=== PATIENT | male | born 1980 | race Caucasian/White ===

== ENCOUNTER 2023-03-30 22:06 | Emergency (ER) | payer OTHER, SELFPAY ==
[2023-03-30 22:07] VITALS: BP 157/90; PULSE 77; RESP 18; TEMP 36.8; O2SAT 99; BMI 47.0
--- NOTE | 2023-03-30 22:25 | RAD_ITS ---
INDICATION: INJURY EXAMINATION/TECHNIQUE: X-RAY - LEFT XR Hand Min 3 Views 3 VIEWS COMPARISON: None. FINDINGS: SOFT TISSUES: No soft tissue swelling or gas. No radiopaque foreign body. BONES/JOINTS: No acute fracture or subluxation.. Normal alignment. Preservation of the joint space.. No sclerotic or destructive changes observed. RAD/Hand Min 3 Views IMPRESSION: Negative. Electronically Signed: Iker Mendosa MD at 23:02 EDT ,
--- NOTE | 2023-03-30 23:15 | EX.ED.UPPERE ---
HPI History of Present Illness Chief Complaint: Upper Extremity Injury Detail of Chief Complaint: Crush injury left third finger Informant: patient Narrative Narrative: Patient presents secondary to crush injury to the left third finger. He was at work tonight and put a autobody down on a cart. He did not see on the pins correctly. He put his finger underneath to see how far he needed to move when it shifted and crushed his left third finger. He is right-hand dominant. He is unsure of his last tetanus update. PFSH PFSH Medical History no medical history no medical history Allergy/AdvReac Type Severity Reaction Status Date / Time Penicillins Allergy Mild Hives Verified 03/30/23 22:10 sertraline [From Zoloft] Allergy Mild Hives Verified 03/30/23 22:10 Social History Smoking Status: Never smoker ROS ROS ED Constitutional Constitutional ED: Denies chills or fever(s) ENT ENT ED: Denies rhinorrhea or sore throat Cardiovascular Cardiovascular: Denies chest pain Respiratory/Chest Respiratory/Chest: Denies cough or dyspnea Gastrointestinal Gastrointestinal: Denies abdominal pain, nausea or vomiting Musculoskeletal Musculoskeletal: Reports extremity pain; Denies back pain Integumentary Denies Abrasions or rash Neurologic Neurologic: Denies headache(s), paresthesias or weakness Psychiatric Psychiatric: Denies anxiety or depression Allergic/Immunologic Allergic/Immunologic ED: Denies lip swelling or urticaria EXAM Physical Exam Const Vital Signs: 03/30/23 22:07 Temperature 98.3 F Temperature Source Temporal Pulse Rate 77 Respiratory Rate 18 Blood Pressure 157/90 H Blood Pressure Mean 112 Pulse Ox 99 Oxygen Delivery Method Room Air Positive well nourished and well developed General Appearance ED: well developed HEENT Reports moist mucous membranes Neck full ROM Chest Wall inspection of chest normal and palpation of chest normal Resp normal respiratory effort and clear to auscultation bilaterally Cardio regular rate and regular rhythm GI non-tender Palpation: soft Neuro moves all extremities, no focal motor deficits and no sensory deficits noted MDM MDM MDM Narrative Medical decision making narrative: Patient consented for digital block. 4 cc of 1% lidocaine are infused to the proximal phalanx of the left third finger. Good anesthesia is achieved. Wound is cleansed. He has a small laceration on the ulnar side of the nail. This is evacuating the subungual hematoma that is present. There is also a small skin disruption over the distal aspect of the distal phalanx. Neither 1 of these require suture. Antibiotic ointment placed and dressing applied. Radiography Diagnostic Testing: Clinical Impression(s) from Imaging Studies Hand X-Ray 03/30/23 22:25 IMPRESSION: Negative. Electronically Signed: Iker Mendosa MD at 23:02 EDT , Discharge Plan Triage Chief Complaint: Upper Extremity Injury ED Provider: Cintia Rubio Dx/Rx/DC Orders Clinical Impression: Crushing injury of finger, Subungual hematoma Instructions: ED Crush Injury, Hand, ED Subungual Hematoma Stand Alone Forms: Work Status Form Primary Care Provider: Care Physician,No Primary Referrals: Corporate,Care [Group of Physicians] - 3-5 Days NOT,DEFINED [Non-Staff] - Disposition Disposition: Home, Self Care
[2023-03-30] MEDS: Diphth,Pertuss(Acell),Tet Vac 0.5 ML Vial IM (23:41)
[2023-03-30] MEDS: Lidocaine 1% (20 ml mdv) 20 ML Vial INFILT (23:43)
== END 2023-03-31 00:10 | disposition home or self-care (01) ==
PROVIDERS: Emergency Provider Emergency Medicine; Visit Provider Emergency Medicine
DX: S67.193A Crushing injury of left middle finger, initial encounter (principal); W23.2XXA Caught, crushed, jammed or pinched between a moving and stationary object, initial encounter; Y99.0 Civilian activity done for income or pay; Y92.69 Other specified industrial and construction area as the place of occurrence of the external cause; S60.032A Contusion of left middle finger without damage to nail, initial encounter; Z23 Encounter for immunization
CPT/HCPCS: 64450; 73130; 90471; 90715; 99283